=== PATIENT | male | born 1945 | race Caucasian/White ===

== ENCOUNTER 2016-12-26 08:32 | Day surgery (SDC) | payer OTHER ==
[2016-12-26] MEDS ORDERED: TETRACAINE 0.5% OPHTH 1 DOSE AFFEYE ONE ×3 (09:30→11:53)
[2016-12-26] MEDS ORDERED: VIGAMOX 0.5% OPHTH 1 DOSE AFFEYE ONE ×5 (09:31→12:09)
[2016-12-26] MEDS ORDERED: NS 500 ML IV 500 ML IV ONE (09:34)
[2016-12-26] MEDS ORDERED: PROLENSA OPHTH 1 DOSE AFFEYE ONE (09:42)
[2016-12-26] MEDS ORDERED: ALPHAGAN-P OPHTH 1 DOSE AFFEYE ONE (09:43)
[2016-12-26] MEDS ORDERED: CYCLOGYL 1% OPHTH 1 DOSE OP ONE ×3 (09:45→09:47)
[2016-12-26] MEDS ORDERED: AK-DILATE 2.5% OPHTH 1 DOSE OP ONE ×3 (09:45→09:47)
[2016-12-26] MEDS ORDERED: MYDRIACIL OPHTH 1 DOSE AFFEYE ONE ×3 (09:45→09:47)
[2016-12-26] MEDS ORDERED: BETADINE OPHTH SOLN 5% EACHEYE ONE (11:50)
[2016-12-26] MEDS ORDERED: ADRENALINE CHL INJ IJ ONE (11:53)
[2016-12-26] MEDS ORDERED: XYLOCAINE-MPF 1% IJ ONE (11:53)
[2016-12-26] MEDS ORDERED: DUOVISC IO ONE (11:53)
[2016-12-26] MEDS ORDERED: BSS OPHTH (PLAIN) 500 ML with VANCOMYCIN HCL 500 MG VIAL 25 MG, ADRENALINE CHL INJ 1 MG IR ONE ×3 (11:53)
[2016-12-26 15:15] VITALS: BP 167/76
== END 2016-12-26 12:35 | disposition home or self-care (01) ==
LOC: SURG1 08:32
PROVIDERS: ATTEND Ophthalmology
PROC: 08J1XZZ Inspection of Left Eye, External Approach (ICD-10-PCS; principal; 2016-12-26 15:00)
PROC: 08RK3JZ Replacement of Left Lens with Synthetic Substitute, Percutaneous Approach (ICD-10-PCS; principal; 2016-12-26 15:00)
PROC: 08DK3ZZ Extraction of Left Lens, Percutaneous Approach (ICD-10-PCS; principal; 2016-12-26 15:00)
DX: H25.12 Age-related nuclear cataract, left eye (principal); H25.042 Posterior subcapsular polar age-related cataract, left eye; H52.222 Regular astigmatism, left eye
CPT/HCPCS: 99100; A4217; J0170; J3370

== ENCOUNTER 2017-01-09 06:51 | Day surgery (SDC) | payer OTHER ==
[2017-01-09] MEDS ORDERED: DUREZOL OPHTH 1 DOSE AFFEYE ONE (07:29)
[2017-01-09] MEDS ORDERED: NS 500 ML IV 500 ML IV ONE (07:31)
[2017-01-09] MEDS ORDERED: TETRACAINE 0.5% OPHTH 1 DOSE AFFEYE ONE ×4 (07:31→10:13)
[2017-01-09] MEDS ORDERED: VIGAMOX 0.5% OPHTH 1 DOSE AFFEYE ONE ×7 (07:32→10:30)
[2017-01-09] MEDS ORDERED: PROLENSA OPHTH 1 DOSE AFFEYE ONE (07:43)
[2017-01-09] MEDS ORDERED: ALPHAGAN-P OPHTH 1 DOSE AFFEYE ONE (07:44)
[2017-01-09] MEDS ORDERED: VISINE-A OPHTH 1 DOSE AFFEYE ONE (07:46)
[2017-01-09] MEDS ORDERED: MYDRIACIL OPHTH 1 DOSE AFFEYE ONE ×4 (07:48→07:53)
[2017-01-09] MEDS ORDERED: CYCLOGYL 1% OPHTH 1 DOSE OP ONE ×4 (07:48→07:53)
[2017-01-09] MEDS ORDERED: AK-DILATE 2.5% OPHTH 1 DOSE OP ONE ×4 (07:48→07:53)
[2017-01-09] MEDS ORDERED: BETADINE OPHTH SOLN 5% EACHEYE ONE (10:00)
[2017-01-09] MEDS ORDERED: FENTANYL INJ 100 mcg ONE (10:08)
[2017-01-09] MEDS ORDERED: BSS OPHTH (PLAIN) 500 ML with VANCOMYCIN HCL 500 MG VIAL 25 MG, ADRENALINE CHL INJ 1 MG IR ONE ×6 (10:08)
[2017-01-09] MEDS ORDERED: DUOVISC IO ONE ×2 (10:10→10:13)
[2017-01-09] MEDS ORDERED: XYLOCAINE-MPF 1% IJ ONE ×2 (10:10→10:13)
[2017-01-09] MEDS ORDERED: ADRENALINE CHL INJ IJ ONE ×2 (10:10→10:13)
[2017-01-09] MEDS ORDERED: VISCOAT 0.5 ML IO ONE (10:22)
[2017-01-09 11:11] VITALS: BP 149/69
[2017-01-09] MEDS ORDERED: DIPRIVAN VIAL ONE (16:11)
[2017-01-09] MEDS ORDERED: VERSED ONE (16:11)
== END 2017-01-09 10:55 | disposition home or self-care (01) ==
LOC: SURG1 06:51
PROVIDERS: ATTEND Ophthalmology
PROC: 08RJ3JZ Replacement of Right Lens with Synthetic Substitute, Percutaneous Approach (ICD-10-PCS; principal; 2017-01-09 08:30)
PROC: 08DJ3ZZ Extraction of Right Lens, Percutaneous Approach (ICD-10-PCS; principal; 2017-01-09 08:30)
DX: H25.11 Age-related nuclear cataract, right eye (principal); H25.041 Posterior subcapsular polar age-related cataract, right eye; H52.221 Regular astigmatism, right eye
CPT/HCPCS: 99100; A4217; J0170; J2250; J3010; J3370; J3490